=== PATIENT | female | born 1945 | race Caucasian/White ===

== ENCOUNTER 2016-06-23 08:12 | Outpatient (CLI) | payer OTHER, MEDICARE ==
[2016-06-23 09:03] LABS: Anion Gap 17 mmol/L (10-20); BUN (Urea Nitrogen) 22 mg/dL (9.8-20.1); Calc. Creatinine Clearance 0 mL/min (70-130); Calcium 9.5 mg/dL (7.8-10.44); Carbon Dioxide 30 mmol/L (23-31); Chloride 99 mmol/L (98-107); Estimated GFR-MDRD 59; Glucose 95 mg/dL (83-110); Potassium 3.1 mmol/L (3.5-5.1); Sodium 143 mmol/L (136-145)
== END 2016-06-23 08:13 ==
LOC: MADLAB 08:12
PROVIDERS: ATTEND Internal Medicine Cardiovascular Disease
DX: Z51.81 Encounter for therapeutic drug level monitoring (principal); Z79.899 Other long term (current) drug therapy
CPT/HCPCS: 36415; 80048

== ENCOUNTER 2016-10-05 11:01 | Outpatient (CLI) | payer OTHER, MEDICARE ==
[2016-10-08 22:39] LABS: HPV High Risk Type 16 Negative (Negative); HPV High Risk Type 18 Negative (Negative); HPV Other High Risk Types Negative (Negative)
== END 2016-10-05 11:02 ==
LOC: MADLABBHPM 11:01
PROVIDERS: ATTEND Family Medicine
DX: Z01.419 Encounter for gynecological examination (general) (routine) without abnormal findings (principal)
CPT/HCPCS: 36415; 87624; 88142; G0123

== ENCOUNTER 2016-10-09 07:11 | Outpatient (CLI) | payer OTHER, MEDICARE ==
[2016-10-09 09:44] LABS: #Basophils 0.1 thou/uL (0.0-0.2); #Eosinphils 0.2 thou/uL (0.0-0.7); #Lymphocytes 1.2 thou/uL (1.20-3.40); #Monocytes 0.6 thou/uL (0.11-0.59); #Neutrophils 4.3 thou/uL (1.40-6.50); %Basophils 2.3 % (0.0-1.0); %Eosinophils 3.1 % (0.0-10.0); %Lymphocytes 18.4 % (21.0-51.0); %Monocytes 9.1 % (0.0-10.0); %Neutrophils 67.1 % (42.0-75.0); Hemoglobin 13.9 g/dL (12.0-16.0); Mean Corpuscular HGB CONC 31.9 g/dL (32.0-36.0); Mean Corpuscular Hemoglobin 29.3 pg (27.0-31.0); Mean Corpuscular Volume 91.7 fl (81.0-99.0); Mean Platelet Volume 7.7 fL (7.4-10.4); Platelet Count 225 thou/uL (130-400); RBC Distribution Width 13.2 % (11.5-14.5); Red Blood Cell (RBC) Count 4.75 mill/uL (4.20-5.40); White Blood Cell (WBC) Count 6.3 thou/uL (4.8-10.8)
[2016-10-09 10:58] LABS: Albumin 4.1 g/dL (3.4-4.8); Anion Gap 13 mmol/L (10-20); BUN (Urea Nitrogen) 22 mg/dL (9.8-20.1); Bilirubin, Total 0.4 mg/dL (0.2-1.2); Calcium 9.4 mg/dL (7.8-10.44); Carbon Dioxide 29 mmol/L (23-31); Chloride 105 mmol/L (98-107); Estimated GFR-MDRD 74; Globulin 2.8 g/dL (2.4-3.5); Glucose 100 mg/dL (83-110); Potassium 3.9 mmol/L (3.5-5.1); Protein, Total 6.9 g/dL (5.8-8.1); Sodium 143 mmol/L (136-145)
[2016-10-09 10:59] LABS: ALT (SGPT) 19 U/L (8-55); AST (SGOT) 20 U/L (5-34); Alkaline Phosphatase 85 U/L (40-150); Cardiac Risk 2.8 (Less than 4.5); Cholesterol 226 mg/dL (< 200 Desired); HDL Cholesterol 81 mg/dL (>60 Neg Risk); LDL Cholesterol, Calculated 132 mg/dL; Triglycerides 65 mg/dL (Less than 150)
[2016-10-09 11:00] LABS: Free T4 (Free Thyroxine) 0.98 ng/dL (0.70-1.48)
[2016-10-09 11:44] LABS: Thyroid Stimulating Hormone 1.35 uIU/mL (0.35-4.94)
== END 2016-10-09 07:12 ==
LOC: MADLABBHPM 07:11
PROVIDERS: ATTEND Family Medicine
DX: Z01.419 Encounter for gynecological examination (general) (routine) without abnormal findings (principal)
CPT/HCPCS: 36415; 80053; 80061; 82306; 83036; 84439; 84443; 85025

== ENCOUNTER 2017-04-18 12:51 | Emergency (ER) | payer OTHER, MEDICARE ==
[~2017-04-18 12:51] MED LIST: Sodium Chloride 0.9% 1,000 ML BAG ONE; Sodium Chloride 0.9% 100 ML BAG ONE
[2017-04-18] MEDS ORDERED: Morphine 4 MG/ML VIAL ONE (13:52)
[2017-04-18] MEDS ORDERED: Acetaminophen 500 MG TAB ONE (13:52)
[2017-04-18 13:56] LABS: Bilirubin Small (Negative); Blood, Urine Negative (Negative); Clarity Clear (Clear); Glucose, Urine (Dipstick) Negative (Negative); Leukocyte Negative (Negative); Nitrite Negative (Negative); Protein, Urine (Dipstick) 30 mg/dL (Neg-Trace); Urobilinogen 0.2 mg/dL (0.2-1.0); pH, Urine 8.5 (5.0-9.0)
[2017-04-18 13:56] LABS: #Basophils 0.1 thou/uL (0.0-0.2); #Lymphocytes 0.8 thou/uL (1.20-3.40); #Monocytes 1.1 thou/uL (0.11-0.59); #Neutrophils 14.5 thou/uL (1.40-6.50); %Basophils 0.8 % (0.0-1.0); %Eosinophils 0.3 % (0.0-10.0); %Lymphocytes 4.9 % (21.0-51.0); %Monocytes 6.7 % (0.0-10.0); %Neutrophils 87.3 % (42.0-75.0); Hemoglobin 13.7 g/dL (12.0-16.0); Mean Corpuscular HGB CONC 31.7 g/dL (32.0-36.0); Mean Corpuscular Hemoglobin 28.4 pg (27.0-31.0); Mean Corpuscular Volume 89.7 fl (81.0-99.0); Mean Platelet Volume 7.2 fL (7.4-10.4); Platelet Count 240 thou/uL (130-400); RBC Distribution Width 12.8 % (11.5-14.5); Red Blood Cell (RBC) Count 4.82 mill/uL (4.20-5.40); White Blood Cell (WBC) Count 16.6 thou/uL (4.8-10.8)
[2017-04-18 14:05] LABS: Bacteria/HPF Rare-Few HPF (None Seen); RBC/HPF 0-3 HPF (0-3); Squamous Epithelial 0-3 HPF (0-3); WBC/HPF None Seen HPF (0-3)
[2017-04-18 14:06] LABS: Crystals/HPF 1+ AMORPH PHOS HPF (Negative)
[2017-04-18 14:14] LABS: ALT (SGPT) 17 U/L (8-55); AST (SGOT) 17 U/L (5-34); Alkaline Phosphatase 104 U/L (40-150); Anion Gap 19 mmol/L (10-20); BUN (Urea Nitrogen) 21 mg/dL (9.8-20.1); Calc. Creatinine Clearance 0 mL/min (70-130); Calcium 9.5 mg/dL (7.8-10.44); Carbon Dioxide 22 mmol/L (23-31); Chloride 102 mmol/L (98-107); Estimated GFR-MDRD 87; Globulin 3.4 g/dL (2.4-3.5); Glucose 117 mg/dL (83-110); Potassium 3.6 mmol/L (3.5-5.1); Protein, Total 7.4 g/dL (6.0-8.3); Sodium 139 mmol/L (136-145)
[2017-04-18] MEDS ORDERED: Piperacillin/Tazobactam 3.375 GM VIAL ONE (14:14)
--- NOTE | 2017-04-18 15:19 | CT ---
CT ABDOMEN AND PELVIS NONCONTRAST: Date: 04/18/17 INDICATION: Low abdominal pain, bilateral flank pain. FINDINGS: There is abnormal inflammation of the pelvis which approximates the distal aspect of the sigmoid colo n. There is an inflamed hyperdense diverticulum within the site of inflammation as well as surroundin g free fluid and localized extraluminal air. Prominent pelvic fat stranding and mild presacral depend ent fluid present. This indicates a localized perforation related to acute sigmoid diverticulitis. So lid abdominal organs are limited without the presence of IV contrast. There is diffuse vascular calci fication. Evidence of prior cholecystectomy. Lung bases are free from consolidation. No acute uymlf0p s pathology. IMPRESSION: Evidence of localized perforation within the left pelvis adjacent to inflamed sigmoid diverticulum. T here is free fluid and extraluminal air. Surgical consultation is warranted. These findings were telephoned to patient's ER physician, Chilo Reese, at 1347 hours on 04/18/17 . CODE CR. POS: TAMIR
== END 2017-04-18 15:07 | disposition short-term general hospital (02) ==
LOC: MADERS 12:51
DX: K63.1 Perforation of intestine (nontraumatic) (principal); I10 Essential (primary) hypertension; K21.9 Gastro-esophageal reflux disease without esophagitis; J45.909 Unspecified asthma, uncomplicated; Z87.891 Personal history of nicotine dependence; Z79.899 Other long term (current) drug therapy
CPT/HCPCS: 36415; 74176; 80053; 81003; 81015; 83605; 85025; 87040; 96365; 96375; J2270; J2543; J7050

== ENCOUNTER 2019-10-12 09:30 | Outpatient (CLI) | payer OTHER, MEDICARE ==
--- NOTE | 2019-10-12 09:56 | RAD ---
Radiograph right hip 2 views: 10/12/2019 HISTORY: 74-year-old female with chronic right hip pain FINDINGS: Mild to moderate bony hypertrophy at superior and inferior aspects of acetabulum. Femoral head contou r maintained. Tiny subcapital osteophytes. Enthesophyte at greater trochanter. Femoral head contour maintained. No high-grade joint space narrowing. No fracture or dislocation. IMPRESSION: Mild-moderate osteoarthrosis of the right hip
--- NOTE | 2019-10-12 11:48 | RAD ---
3 VIEWS RIGHT SHOULDER: Date: 10/12/2019 COMPARISON: None. HISTORY: Chronic pain. FINDINGS: There is degenerative change involving the acromioclavicular joint and the glenohumeral joint with luis int space narrowing and osteophyte formation. There is no widening of the coracoclavicular interspace or the acromioclavicular interspace, and there is no displaced fracture or dislocation. IMPRESSION: No acute osseous abnormality. Degenerative joint disease. POS: BEL
== END 2019-10-12 09:31 | disposition home or self-care (01) ==
LOC: MADRAD 09:30
PROVIDERS: ATTEND Family Medicine
DX: M25.511 Pain in right shoulder (principal); M25.551 Pain in right hip; M19.011 Primary osteoarthritis, right shoulder; M16.11 Unilateral primary osteoarthritis, right hip

== ENCOUNTER 2020-08-25 19:30 | Emergency (ER) | payer MEDICARE, OTHER | END 2020-08-25 20:01 | disposition home or self-care (01) | LOC: MADERS 19:30 | DX: S51.811A Laceration without foreign body of right forearm, initial encounter (principal); L98.9 Disorder of the skin and subcutaneous tissue, unspecified; M19.90 Unspecified osteoarthritis, unspecified site; I10 Essential (primary) hypertension; K21.9 Gastro-esophageal reflux disease without esophagitis; J45.909 Unspecified asthma, uncomplicated; Z79.899 Other long term (current) drug therapy | CPT/HCPCS: 99282 ==

== ENCOUNTER 2020-12-21 12:43 | Emergency (ER) | payer MEDICARE ==
[2020-12-22 17:42] LABS: SARS-CoV-2 PCR by NAA DETECTED (NotDetected)
== END 2020-12-21 14:10 | disposition home or self-care (01) ==
LOC: MADERS 12:43
DX: U07.1 COVID-19 (principal); J20.8 Acute bronchitis due to other specified organisms; J01.90 Acute sinusitis, unspecified; M19.90 Unspecified osteoarthritis, unspecified site; I10 Essential (primary) hypertension; K21.9 Gastro-esophageal reflux disease without esophagitis; J45.909 Unspecified asthma, uncomplicated; Z79.899 Other long term (current) drug therapy
CPT/HCPCS: 71045; U0003; U0005; 96372; J1040